=== PATIENT | male | born 1995 | race Caucasian/White ===

== ENCOUNTER 2022-04-17 16:23 | Emergency (ER) | payer OTHER, SELFPAY ==
--- NOTE | 2022-04-17 16:30 | DI.RAD_ITS ---
Exam(s) XR KNEE RT 3V AP,LAT,OFELIA EXAM: XR KNEE RT 3V AP,LAT,OFELIA CLINICAL HISTORY: ski accident. TECHNIQUE: 2D digital imaging was performed. Three views. COMPARISON: No exams were available for comparison FINDINGS: BONES: Large fracture fragment from tibial plateau displaced posteriorly. no bony destructive lesion is seen. JOINTS: The knee is normally aligned. A joint effusion is seen. SOFT TISSUE: Normal. IMPRESSION: Tibial plateau fracture. DATA REPOSITORY: RADIATION DOSE DELIVERED:
[2022-04-17 16:35] VITALS: BP 137/93; PULSE 120; RESP 18; TEMP 36.6; O2SAT 98
[2022-04-17 16:42] VITALS: BP 137/93; PULSE 125; RESP 26; O2SAT 98
--- NOTE | 2022-04-17 16:48 | ED.GENADUL_ITS ---
Discharge Plan Disposition Patient Disposition: Home Discharge Details Clinical Impression: Closed fracture of tibial plateau Primary Care Provider: None,None ED Provider: Ciro Stokes Home Meds and New Rx's Prescriptions: New oxycodone-acetaminophen [Percocet] 5-325 mg tablet 1 tab PO Q8H PRNQty: 8 0RF Continued propranolol 10 mg Tablet 10 mg PO DAILY lisinopril 10 mg Tablet 10 mg PO DAILY Discharge Instructions Instructions: Leg Fracture (ED) Additional Instructions: Oxycodone as directed, this medication may cause drowsiness and constipation, you may want to take an ocry-lcv-hszlqzk stool softener while taking this medication. Npvx-dzc-slqayon ibuprofen as directed. Wear knee immobilizer and use crutches, no weightbearing. Rest, elevate, cool compresses every 2 hours for 20 minutes. Please watch for new or worsening symptoms and return to the ER for any concerns. I personally spoke with our orthopedic team, Dr. Olsen, have placed you on the orthopedic list to help expedite outpatient follow-up care. Please contact the office of Dr. Olsen on Tuesday after the holiday on Tuesday. Referrals: Matias Olsen MD [ [facility] STAFF PHYSICIAN] - Medical Decision Making This is a 27-year-old gentleman who reports 1 hour ago was skiing, wearing a helmet, went over a small hill of snow, and upon coming down his right foot planted and he twisted his right knee. He denies striking his head, LOC, neck pain, chest pain, any other distracting injuries. Has not taken any medication for his pain. Reports his pain is moderate but worse with movement or bearing weight. Denies previous knee injury. Plan to provide p.o. ibuprofen and Percocet. Will obtain x-ray. X-ray reveals a tibial plateau fracture. Heart rate now 108, patient reports improvement of his pain. Case discussed with Dr. Olsen, orthopedics. Will obtain CT imaging of his right knee without contrast. Once he returns from CT we will place into a long- leg immobilizer and crutches, no weightbearing. Patient will not wait for the CT results as it would not change his disposition here in the ER and he will be placed on the orthopedic list to help expedite outpatient Ortho follow-up. Standard discharge and return precautions were provided. Patient understands, is agreeable to this plan, and has no additional questions or concerns upon discharge. This documentation was generated using [employer] dictation system, please disregard any oddities of phrase or misspellings. Imaging Data Radiologic Study: Attestation: I personally reviewed and interpreted this imaging study as follows: Imaging: X-Ray Radiologist's impression: PROCEDURE INFORMATION: Exam: XR Right Knee Exam date and time: 04/17/2022 4:54 PM Age: 27 years old Clinical indication: Injury or trauma; Skiing accident; Fracture, traumatic; Closed fracture; Patella or knee; Right TECHNIQUE: Imaging protocol: Radiologic exam of the Right knee. Views: 4 or more views. COMPARISON: No relevant prior studies available. FINDINGS: Bones/joints: There is a large fracture of the tibial plateau involving the tibial spine and extending posteriorly. A large fracture fragment is seen in the joint space. There is no joint dislocation. A small joint effusion is noted. Soft tissues: Subcutaneous edema noted in the infrapatellar region. IMPRESSION: Tibial plateau fracture predominantly involving the tibial spine with a large fracture fragment extending into the joint space, predominantly medially. A CT scan of the knee is recommended for further evaluation. HPI General Mode of arrival: wheelchair . Date/Time Provider Initiated Documentation: 04/17/22 16:37 . Limitations to Documentation: no limitations . Information obtained by: patient and family . History of Present Illness 27 year old M presents to the emergency department with the chief complaint of R knee injury, described as moderate, with intensity rated at 6. Quality is described as aching, and is localized to the right and lower extremity. Patient reports no radiation. Patient started experiencing this hour(s) (1) and it has been constant. Immobilization improves symptom(s), Movement worsens symptoms . Patient notes no other symptoms.. Patient did receive the following treatments prior to arrival, none Related Data Home Medications Medication Instructions Recorded Confirmed lisinopril 10 mg tablet 10 mg PO DAILY 04/17/22 04/17/22 oxycodone-acetaminophen 5 mg-325 1 tab PO Q8H PRN #8 tabs 04/17/22 mg tablet (Percocet) propranolol 10 mg tablet 10 mg PO DAILY 04/17/22 04/17/22 Previous Rx's Medication Instructions Recorded oxycodone-acetaminophen 5 mg-325 1 tab PO Q8H PRN #8 tabs 04/17/22 mg tablet (Percocet) Allergies Allergy/AdvReac Type Severity Reaction Status Date / Time No Known Allergies Allergy Unverified 04/17/22 16:43 General Stated Complaint: Orthopedic ANGELINE: 3 Review of Systems Constitutional Constitutional: Denies headache(s) ENT Ears, Nose, Mouth, and Throat: Denies headache(s) and Denies neck pain Cardiovascular Cardiovascular: Denies chest pain and Denies dyspnea Respiratory Respiratory: Denies dyspnea Gastrointestinal Gastrointestinal: Denies abdominal pain and Denies nausea Musculoskeletal Musculoskeletal: Denies back pain, Denies neck pain, Denies numbness and Denies tingling Integumentary/Breasts Skin/Breast: Denies rash Neurologic Neurologic: Denies headache(s), Denies numbness and Denies tingling PFSH All Active Problems (Updated 04/17/22 @ 17:44 by YONY Crawford) Closed fracture of tibial plateau (Acute) Social History Smoking/Tobacco Use Status: Never Smoking risk assessment performed?: Yes Alcohol Intake: current Alcohol Intake frequency: a few times a week Drug use: Rarely Substance use type: marijuana Do you feel safe at home: Yes Do you feel safe in your relationship?: Yes Exam Const General: cooperative, healthy appearing, comfortable and no acute distress Orientation: alert and awake [facility] Head: normal to inspection, normocephalic and atraumatic Face and sinus: normal facial exam Mouth: moist mucous membranes Eyes General: appearance normal, both eyes and all related structures Conjunctivae: conjunctivae normal Neck Neck: normal visual inspection, full ROM, no meningeal signs, trachea midline and supple Resp Effort & Inspection: normal respiratory effort and able to speak in complete sentences Cardio Rate: tachycardic Rhythm: regular rhythm Back/Spine/Pelvis Back: No back tenderness Skin General skin exam: no rashes or lesions noted Neuro General: patient alert, patient awake, moves all extremities and no focal motor deficits Cognition: normal cognition Speech: speech normal Gait: antalgic Motor: muscle tone normal throughout Sensory Exam: no sensory deficits noted Extrem General: full ROM and capillary refill normal Other: Right knee with diffuse anterior and medial discomfort and mild swelling. Near full extension and flexion. Knee examination is difficult secondary to guarding. There appears to be increased discomfort with both varus and valgus stress. Anterior draw sign appears positive for both pain and laxity. Hip and calf unremarkable. Neuro, vascular, tendon intact. Normal capillary refill and pedal pulse. Psych Appearance: grossly normal Mental Status: mental status grossly normal Course Vital Signs Vital signs: Vital Signs Temperature 36.6 C 04/17/22 16:35 Pulse 120 H 04/17/22 16:35 Respiratory Rate 18 04/17/22 16:35 Blood Pressure 137/93 H 04/17/22 16:35 Pulse Oximetry 98 04/17/22 16:35 Temperature 36.6 C 04/17/22 16:35 Pulse 125 H 04/17/22 16:42 Respiratory Rate 26 H 04/17/22 16:42 Respiratory Effort Normal, Non-Labored 04/17/22 16:41 Blood Pressure 137/93 H 04/17/22 16:42 Pulse Oximetry 98 04/17/22 16:42 Oxygen Delivery Method Room Air 04/17/22 16:42 Oxygen Flow Rate 0 04/17/22 16:42 Pain Level 2 04/17/22 16:35 PAWSS Have you Been Recently Intoxicated or Drunk Within the Last 30 days?: No Have you Ever Experienced Previous Episodes of Alcohol Withdrawal?: No Have you ever Experienced Withdrawal Seizures?: No Have you ever Experienced Delirium Tremens(DT)s?: No Have you ever undergone Alcohol Rehabilitation Treatment (i.e, inpt ot o utpatient treatment programs)?: No Have you ever Experienced Blackouts?: No Have you ever Combined Alcohol with other Downers within the last 90 days?: No Have you ever Combined Alcohol with any other Substance of Abuse during the last 90 days?: No Positive Blood Alcohol level on Presentation? [PCS.BAL]: No Evidence of Increased Autonomic Activity (i.e. HR>120, tremor, sweating, agitation, nausea)?: No Result: 0
--- NOTE | 2022-04-17 17:15 | DI.CT_ITS ---
Exam(s) CT LOWER EXTREMITY RT WO EXAM: CT LOWER EXTREMITY RT WO CLINICAL HISTORY: knee, fx on x ray. TECHNIQUE: Imaging Protocol: Axial computed tomography images with coronal and sagittal reformatted images were created and reviewed. CONTRAST MATERIAL: Noncontrast COMPARISON: CR,XR XR KNEE RT 3V AP,LAT,OFELIA from 04/17/2022 FINDINGS: Bones: Fracture extending obliquely in the horizontal plane through the posterior aspects of both med ial and lateral tibial plateaus. Posterior displacement of the main fracture fragment by few millimeters as well as a approximate 5 mi llimeters of maximal separation. Mild comminution at the tibial spine.. No lytic or sclerotic lesio ns are identified. Soft Tissues: Anterior edema. Joint effusion present. IMPRESSION: Mildly comminuted fracture through the posterior aspects of both medial and lateral tibial plateaus. RADIATION DOSE DELIVERED: 303.7mGy.cm Total DLP DATA REPOSITORY: All CT scans at this facility are submitted to the National Radiology Data Registry (NRDR) Dose Index Registry (DIR) with the [employer] ([employer]). RADIATION OPTIMIZATION: All CT scans at this facility use at least one of these dose optimization te chniques: automated exposure control; mA and/or kV adjustment per patient size (includes targeted exa ms where dose is matched to clinical indication); or iterative reconstruction.
--- NOTE | 2022-04-17 17:16 | DI.VRAD_ITS ---
PROCEDURE INFORMATION: Exam: XR Right Knee Exam date and time: 04/17/2022 4:54 PM Age: 27 years old Clinical indication: Injury or trauma; Skiing accident; Fracture, traumatic; Closed fracture; Patella or knee; Right TECHNIQUE: Imaging protocol: Radiologic exam of the Right knee. Views: 4 or more views. COMPARISON: No relevant prior studies available. FINDINGS: Bones/joints: There is a large fracture of the tibial plateau involving the tibial spine and extending posteriorly. A large fracture fragment is seen in the joint space. There is no joint dislocation. A small joint effusion is noted. Soft tissues: Subcutaneous edema noted in the infrapatellar region. IMPRESSION: Tibial plateau fracture predominantly involving the tibial spine with a large fracture fragment extending into the joint space, predominantly medially. A CT scan of the knee is recommended for further evaluation. Dictated and Authenticated by: La Nena High MD. Ordering:EMILIA Tanner MD
[2022-04-17] MEDS: oxyCODONE 5 mg/Acetaminophen 325 mg TAB 1 TAB PO (17:32)
[2022-04-17] MEDS: Ibuprofen 800 MG TAB PO (17:32)
[2022-04-17 18:11] VITALS: BP 132/88; PULSE 116; O2SAT 98
--- NOTE | 2022-04-17 18:27 | DI.VRAD_ITS ---
PROCEDURE INFORMATION: Exam: CT Right Lower Extremity Without Contrast, Knee Exam date and time: 04/17/2022 5:47 PM Age: 27 years old Clinical indication: Tibial plateau FX seen on x-ray TECHNIQUE: Imaging protocol: CT of the Right lower extremity without contrast was performed. Exam focused on the knee. COMPARISON: CR XR KNEE RT 4V+ 04/17/2022 4:54 PM FINDINGS: Bones/joints: There is redemonstration of a complete posterior tibial plateau fracture predominantly involving the tibial spine. The fracture line extends into the medial posterior tibial plateau with mild posterior displacement of the dominant fracture fragment. There is a slightly comminuted appearance of the tibial spine. Of note, the fracture fragment is attached to the posterior cruciate ligament, suggestive of avulsion injury. The patellar tendon and quadriceps tendon appear grossly intact. The partially evaluated anterior cruciate and posterior cruciate ligaments appear at least partially intact. A small amount of joint fluid is noted, likely mild hematoma. There is no joint dislocation. Soft tissues: Subcutaneous edema and hematoma seen predominantly at the medial and anterior aspect of the knee joint. IMPRESSION: 1. Posterior tibial plateau fracture involving the tibial spine as described. The dominant fracture fragment remains attached to the posterior cruciate ligament, suggestive of avulsion. 2. No evidence of joint dislocation. 3. Partially evaluated ligaments and tendons appear grossly intact. However, if there is physical examination concern for tear, an MRI is recommended for further evaluation. Dictated and Authenticated by: La Nena High MD. Ordering:EMILIA Tanner MD
== END 2022-04-17 18:23 | disposition home or self-care (01) ==
PROVIDERS: Emergency Provider Physician Assistant
DX: S82.141A Displaced bicondylar fracture of right tibia, initial encounter for closed fracture (principal); X50.1XXA Overexertion from prolonged static or awkward postures, initial encounter; Y93.23 Activity, snow (alpine) (downhill) skiing, snowboarding, sledding, tobogganing and snow tubing; Y92.828 Other wilderness area as the place of occurrence of the external cause
CPT/HCPCS: 73562; 99284; 73700

== ENCOUNTER 2022-04-21 01:04 | Outpatient (CLI) | payer OTHER, SELFPAY ==
--- NOTE | 2022-04-21 07:30 | DI.MRI_ITS ---
Exam(s) MR LOWER JOINT RT WO EXAM: MR LOWER JOINT RT WO CLINICAL HISTORY: Multilig injury,MCL TEAR,SPRAIN RT KNEE, S83.411A. TECHNIQUE: Multiplanar multisequence MRI was performed. COMPARISON: CR,XR XR KNEE RT 3V AP,LAT,OFELIA from 04/17/[address] LOWER EXTREMITY RT WO from 04/17/2022 FINDINGS: BONES: There is again seen a fracture involving the posterior aspect of both the medial and lateral t ibial plateaus. The bony fragment includes the insertion site of the posterior cruciate ligament. T here is marrow edema in the fracture fragment and the parent proximal tibia. There is also edema see n in the posterior aspect of the lateral femoral condyle. JOINTS: Articular cartilage is unremarkable. There is a joint effusion present. There is a short alma ear object in the anterior joint space which may represent a displaced fracture fragment. TENDONS: Extensor mechanism: Unremarkable. Medial retinaculum: Unremarkable. Lateral retinaculum: Unremarkable. Popliteus: Unremarkable. MUSCLES: Unremarkable. MENISCI: The medial meniscus is unremarkable. The lateral meniscus is unremarkable. SOFT TISSUES: There is marked edema seen in the soft tissues around the knee. There is a very tiny p opliteal cyst. LIGAMENTS: Anterior Cruciate: Unremarkable. Posterior Cruciate: The posterior cruciate ligament is intact and attached to the posterior bony frag ment. Medial Collateral:There is a torn medial collateral ligament distally with fluid between the medial m eniscus and the MCL suggesting meniscocapsular separation. Lateral Collateral: There is thickening of the proximal aspect of the proximal lateral collateral lig ament suspicious for partial tear. OTHER: IMPRESSION: 1. Displaced fracture involving the posterior aspect of the medial and lateral tibial plateau. 2. Tear of the medial collateral ligament distally with findings suggestive of meniscocapsular separa tion. 3. Partial tear of the proximal lateral collateral ligament. 4. Joint effusion 5. Marked edema in the soft tissues around the knee. DATA REPOSITORY:
== END 2022-04-21 01:24 ==
PROVIDERS: Visit Provider Student in an Organized Health Care Education/Training Program
DX: M25.561 Pain in right knee (principal); S83.411A Sprain of medial collateral ligament of right knee, initial encounter; M25.461 Effusion, right knee; S82.141A Displaced bicondylar fracture of right tibia, initial encounter for closed fracture; X58.XXXA Exposure to other specified factors, initial encounter; S83.421A Sprain of lateral collateral ligament of right knee, initial encounter; R60.0 Localized edema
CPT/HCPCS: 73721

== ENCOUNTER 2022-04-22 20:57 | Observation (INO) | payer OTHER, SELFPAY ==
[2022-04-22] VITALS (14 sets, daily range): BP systolic 127–164; BP diastolic 73–108; PULSE 79–98; RESP 18–31; TEMP 36.3–37.5; O2SAT 94–98; BMI 38.0
--- NOTE | 2022-04-22 06:15 | ANES.PREOP_ITS ---
General Info Date of Service Date Performed: 04/22/22 Height: 5 ft 8 in Weight: 113.398 kg Body Mass Index (BMI): 38.0 Surgical Procedure: Operation Date: 04/22/22 10:55 Proposed Procedure Side Surgeon p Knee Arthroscopy w/ Posterior Cruciate Ligament Avulsion Fracture Repair and Medial Meniscus Avulsion Fracture Repair, any other indicated procedures Right J dick Curiel MD Meds Allergies and Home Medications Allergies Allergy/AdvReac Type Severity Reaction Status Date / Time No Known Allergies Allergy Unverified 04/21/22 14:39 Home Medication Medication Instructions Recorded propranolol 10 mg tablet 60 mg PO DAILY 04/17/22 lisinopril 10 1 tab PO DAILY 04/21/22 mg-hydrochlorothiazide 12.5 mg tablet sertraline 50 mg tablet 50 mg PO DAILY 04/21/22 aspirin 81 mg tablet,delayed 81 mg PO DAILY Prevent blood clot 04/22/22 release 30 days #30 tabs naproxen 250 mg tablet 250 - 500 mg PO BID PRN #40 tabs 04/22/22 oxycodone 5 mg tablet 5 - 10 mg PO Q4H PRN moderate to 04/22/22 severe pain #18 tabs Current Visit Medications: Current Medications Generic Name Dose Route Start Last Admin Trade Name Freq PRN Reason Stop Dose Admin Ringer's Solution 1,000 mls @ 80 mls/hr 04/22/22 06:00 IV 05/21/22 23:59 INFUSION LASHELL Cefazolin Sodium/Dextrose 2 gm in 50 mls @ 100 mls/hr 04/22/22 06:00 Ancef Duplex IVPB 05/21/22 23:59 PREOP LASHELL IV Miscellaneous Supplies 1 each 04/22/22 06:00 Iv Access IV 05/21/22 23:59 DIRECTED LASHELL Sodium Chloride 0 ml 04/22/22 06:00 Normal Saline Flush 10 Ml Syr IV 05/21/22 23:59 PRN PRN Sodium Chloride 0 ml 04/22/22 06:00 Normal Saline 10 Ml Vial IJ 05/21/22 23:59 DIRECTED PRN Sterile Water 0 ml 04/22/22 06:00 Water,Injection,Sterile 10 Ml Vial IJ 05/21/22 23:59 DIRECTED PRN PFSH Active Problems Active Problems: Problem Status Onset Code Traumatic rupture of posterior cruciate ligament of right knee 04/17/22 S83.521A Fracture of right tibial plateau 04/17/22 S82.141A MCL sprain of right knee S83.411A Medical History Medical History Anxiety Depression HTN (hypertension) Tobacco Smoking/Tobacco Use Status: Never Alcohol Alcohol Intake: current Alcohol intake frequency: a few times a week Substance Use Substance use: Rarely Substance use type: marijuana Vital Signs and Lab Results Vital Signs Most Recent Vital Signs in EMR: Temp Pulse Resp BP Pulse Ox 36.3 C L 84 18 127/78 98 04/22/22 10:06 04/22/22 10:06 04/22/22 10:06 04/22/22 10:06 04/22/22 10:06 Lab Results Blood Type / Crossmatch: No Data to Display Complete Blood Count: No Data to Display Complete Metabolic Panel: No Data to Display Liver Function Panel: No Data to Display Coagulation Panel: No Data to Display Cardiac Panel: No Data to Display Arterial Blood Gas: No Data to Display Venous Blood Gas: No Data to Display Pancreas Panel: No Data to Display Thyroid Panel: No Data to Display Infectious Disease: No Data to Display Blood Cultures: No Data to Display Toxicology Panel: No Data to Display Anesthesia Assessment and Plan Anesthesia History Personal History: No History of Anesthesia Complications Family History: No Family History of Anesthesia Complications Exercise Tolerance Exercise Tolerance: Metabolic Equivalents>4 Pertinent Negatives Pertinent Negatives: No Symptoms of GERD Cardiac & Pulmonary Exam Cardiac Exam: Normal S1/S2 Heart Sounds Pulmonary Exam: Clear Bilateral Breath Sounds Implantable Cardiac Device Does patient have a Pacemaker or an ICD?: No Airway Exam Known Difficult Airway: No Mallampati Class: 2 Mouth Opening: Normal (> 3cm) Thyromental Distance: Greater than 3 cm Neck Range of Motion: Full ROM Neck Circumference: Normal Teeth Condition: Normal Dentition ASA Classification ASA Score: ASA 2 Emergency Case?: No NPO Status NPO Status: NPO Clears >2 hours, Solids >8 hours Anesthesia Plan Resuscitation Status: Full Code Anesthesia Technique: General Anesthesia Airway Planned: Endotracheal Tube Monitors Used: Standard Monitors Preoperative Comments:: 27 yo male for knee scope. Sig PMHx: anxiety/depression, HTN (lisinopril, HCTZ, propranolol), occ EtOH/cannabis
--- NOTE | 2022-04-22 07:23 | W.PM.DSUDISC ---
Date of service: 04/22/22 Time of Service: 17:00 Discharge Plan Disposition Patient Disposition: Home Discharge Details Attending Provider: Babar Curiel Primary Care Provider: Katty,Local Home Meds and New Rx's Prescriptions: New aspirin 81 mg tablet,delayed release (DR/EC) 81 mg PO DAILY 30 Days Qty: 30 0RF naproxen 250 mg tablet 250 - 500 mg PO BID PRNQty: 40 0RF Rx Instructions: take with a meal oxycodone 5 mg tablet 5 - 10 mg PO Q4H MDD 30 mg PRN (Reason: moderate to severe pain) Qty: 18 0RF Continued propranolol 10 mg Tablet 60 mg PO DAILY lisinopril-hydrochlorothiazide 10-12.5 mg tablet 1 tab PO DAILY Patient Comments: TAKE ONE TABLET BY MOUTH EVERY DAY sertraline 50 mg tablet 50 mg PO DAILY Patient Comments: TAKE ONE TABLET BY MOUTH EVERY DAY Discontinued oxycodone-acetaminophen [Percocet] 5-325 mg tablet 1 tab PO Q8H PRNQty: 8 0RF Discharge Instructions Additional Instructions: Surgery: Right knee arthroscopy with PCL avulsion fracture repair, partial lateral meniscectomy, and MCL repair. Activity: Crutches and protected weightbearing with knee in full extension for 6 weeks. Hinged knee brace should be on and locked in extension whenever ambulatory. Seated range of motion 0-90 degrees starting week 3. Deeper flexion OK after week 6. Need to avoid posterior tibial translation: No active knee flexion (avoid hamstring activation) and prone knee extension for 8 weeks. A physical therapy prescription will be sent electronically to start in 2 to 3 weeks. Prescriptions: Aspirin 81 mg take 1 daily to prevent a blood clot for 30 days Naproxen 250 mg take 1-2 every 12 hours with a meal as needed for moderate pain Oxycodone 5 mg take 1-2 every 4-6 hours as needed for severe pain You may use [id number]-[id number] Tylenol (acetaminophen) as needed for mild pain. These pain medications may be taken all at once or in different combinations as needed. Also, recommend Colace (docusate) as a stool softener as surgery and pain medicine cause constipation. You may try zvwa-mcd-hclfinf diphenhydramine (Benadryl) 25-50 mg nightly as a sleep aid Dressings: Leave dressing in place for 5 days. May then remove and leave open to air or cover incisions with Band-Aids. Leave the sticky Steri-Strips in place until they fall off or remove them after you shower. May shower after 7 days. Follow-up: 10-[address] Curiel You may take off the leg compression stockings this evening at home. You may also leave them on a few days longer if you have a history of leg swelling or edema. Let us know right away if you develop any redness, drainage, fevers, chest pain, or trouble breathing. Do not drink alcohol or drive for at least 24 hours after anesthesia. Please call the office during business hours with any questions or concerns. Discharge Orders Discharge Orders: Discharge Order (Routine); Ordered 04/22/22 Ordered By: Babar Curiel DS: Diagnosis Discharge Diagnosis (1) Traumatic rupture of posterior cruciate ligament of right knee: Status: Acute (2) Fracture of right tibial plateau: Status: Acute (3) MCL sprain of right knee: Status: Acute
--- NOTE | 2022-04-22 07:23 | W.PM.OP ---
Date of service: 04/22/22 Time of Service: 13:00 Operative Note Operative Note DATE OF PROCEDURE: 04/22/22 PRE-OP DIAGNOSIS: Right knee 1. Complete displaced PCL avulsion fracture 2. Posterior medial tibial plateau fracture 3. Complete mid substance MCL tear POST-OP DIAGNOSIS: same 4. Small posterior horn and root lateral meniscus tears PROCEDURE: Right knee 1. Arthroscopic PCL avulsion fracture repair, CPT #78721 2. Partial lateral meniscectomy, CPT #82709 3. Open midsubstance MCL repair, CPT #50105 SURGEON: Babar Curiel MANAGER [employer] BUSINESS: Catia Obregon ANESTHESIA TYPE: Local By Surgeon, General LMA/ETT and Primary Nerve Block Refer to Anesthesia Record ESTIMATED BLOOD LOSS: 15 PATHOLOGY: none sent TOURNIQUET TIME: 0 Patient was transported to: PACU Patient's condition: stable Indications: Please see complete medical record for details. Findings: Exam under anesthesia: Obvious posterior sag, positive posterior drawer. High?grade valgus complete MCL instability in flexion and extension. Anterior drawer stable. Arthroscopic findings: Complete bony avulsion fracture PCL avulsion posterior and central tibia. Mild posterior horn and root lateral meniscus tearing. Intact medial meniscus to tibia with meniscocapsular separation proximally. Complete MCL midsubstance disruption a couple centimeters distal to the joint line. Intact ACL. Intact articular cartilage. Procedure Description: In the operating room, general anesthesia was induced. The patient was positioned supine on the operating room table. All bony prominences were well-padded. Preoperative antibiotics were administered. The knee was prepped and draped in the usual sterile fashion. The correct patient, procedure, and side of the procedure were all verified prior to incision. Exam under anesthesia was performed. 30 cc of 0.25% bupivacaine containing epinephrine was infiltrated about the planned anteromedial and anterolateral knee arthroscopy portals as well as the pretibial and medial knee incisions. The portals were established and a complete diagnostic arthroscopy was performed with relevant findings detailed above. The arthroscope was carefully directed from the anterior lateral portal between the PCL and medial femoral condyle into the posterior medial compartment. A posterior medial portal was then established using spinal needle localization, dilation, and rigid 7 mm cannula inserted. The PCL avulsion fragment was inspected. Visualization was challenging as expected given intact ACL, intact PCL, and fracture hemorrhage and synovitis. Blunt instruments were carefully used posteriorly alternating viewing from anterior and posterior medial to mobilize through the notch and reduced the fragment as well as create space for the drill guide and repair. The shaver was very cautiously use posteriorly with minimal suction. The intact PCL fibers were intimately connected to the septum occluding complete posterior visualization. The oval tibial drill guide was carefully passed through the medial portal between the medial femoral condyle and PCL and directed using arthroscopic visualization and fluoroscopic assistance over the PCL avulsion fragment and PCL footprint. A small pretibial incision was made and the 2.4 mm drill insert connected down to bone. As best possible the angle was adjusted to target the posterior aspect of the fracture while still allowing arthroscopic visualization and protection of the drilling and button. The 1.24 mm guidewire was then drilled again carefully targeting the appropriate position and advancing slowly. The avulsion fragment was held in a reduced position using the drill guide and the small wire just barely passed through the far cortex and fracture. Additional blunt and shaver debridement had to be done to visualize the tip of the wire. The cannulated 3.7 mm drill was then carefully used over the wire again maintaining the fragment reduced taking care to ensure no advancement of the guidewire into the posterior knee until the entire length and through the fracture had been drilled. The tight rope XP was then inserted through the anteromedial tibial and passed to the fracture site. Arthroscopic viewing and fluoroscopic assistance was used to ensure the button passed through the fragment and was then carefully flipped on PCL tissue avoiding incarcerated any posterior capsule. Provisional tension on the button showed excellent reduction of the avulsion fracture. The tensioning mechanism was then advanced bringing the pretibial button down to cortex and provisional tensioning done. Fluoroscopic and arthroscopic views confirmed appropriate button placement and fracture reduction. The knee was ranged from 0 to 90 degrees numerous times. A moderate anterior drawer was then applied with the knee in 90 years of flexion and tight rope device was final tightened, backup knots tied, and sutures cut. Posterior drawer testing was now stable. There is no displacement of the avulsion fragment. Arthroscopy was then done to confirm reduction of the posterior lateral extension of the fracture fragment, which was well reduced. There was mild fraying of the posterior horn lateral meniscus and moderate fraying at the root with otherwise stable root and intact lateral meniscus. The mechanical shaver was used to debride the lateral meniscus fraying tearing to a stable margin. Arthroscope was then used to evaluate the fracture in the intercondylar area with good reduction. There a few small pieces of comminution about the medial tibial spine anterior to the majority the fracture fragment that was removed resected with the mechanical shaver. The probe was used to confirm intact and stable posterior horn medial meniscus, which was remarkably on injured, and the posterior medial tibial plateau fracture was probed and essentially nondisplaced and had been completely reduced and stably fixated with the PCL tight rope device. At the central medial joint line the probe was used to confirm deep MCL attachment distally to the tibia throughout. There was separation of the proximal deep MCL with positive drive-through from the femur. Spinal needle was used to localize the central aspect of the superficial MCL just proximal to the meniscus. The knee was copiously irrigated and then drained of arthroscopic fluid. A medial longitudinal approach was then done extending from a couple centimeters proximal to the joint line to about 4 cm distal. Fascia was split longitudinally. The proximal stump of the superficial MCL was readily exposed. The more posterior pes and hamstrings were intact. Distally, the MCL was more shredded and did not really have excursion or tissue quality for repair. Fortunately, the proximal MCL could be reduced over the proximal medial tibia with about 2 cm of viable tissue. The proximal MCL was then whipstitched in a locking fashion using 2 suture tapes taking care to incorporate the more proximal sturdy tissue and exiting the tendon and at the appropriate level of the tissue corresponding to about 2 cm distal to the joint line. A central point was marked and confirmed with the motion and traction on the sutured MCL. With the knee in about 30 degrees of flexion and slight varus, the repair was done to a 4.75 mm SwiveLock anchor with excellent tissue reduction, hold, and reapposition across the previously exposed medial joint. Valgus exam was dramatically improved with stable tissue repair in both flexion and extension. The wound was copiously irrigated normal saline. There was no additional distal tissue to incorporate into the repair. The somewhat dykes incised fascia was then repaired and incorporated with some of the more posterior oblique tissue avoiding the pes tendons with a strong running suture tape repair. Superficial layers were irrigated. Subcutaneous tissue closed using 2-0 Monocryl buried interrupted. Skin closed using 3-0 Monocryl running subcuticular. The arthroscopy portals and pretibial incision were then closed using 3 oh buried Monocryl. Mastisol, Steri-Strips, and 4 x 4 gauze were applied over the portals and incisions followed by sterile soft roll. The knee was then wrapped gently with an TONIE comressive bandage. A hinged knee brace was reapplied locked in full extension. Dorsalis pedis pulse was palpable in the foot had brisk cap refill. The patient awoke from anesthesia without complication and was transferred to the recovery room in a stable condition.
[2022-04-22] MEDS: Lactated Ringers 1,000 ML 80 ML IV ×2 (10:35→16:38)
--- NOTE | 2022-04-22 12:00 | DI.RAD_ITS ---
Exam(s) XR KNEE RT 3V AP,LAT,OFELIA EXAM: XR KNEE RT 3V AP,LAT,OFELIA CLINICAL HISTORY: meniscus avulsion fracture TECHNIQUE: 2D and realtime digital imaging was performed. CONTRAST MATERIAL: Refer to procedure report. COMPARISON: CR,XR XR KNEE RT 3V AP,LAT,OFELIA from 04/17/2022 FINDINGS: Fluoroscopy was provided for Dr. Curiel during the performance of a reduction and internal fixation of tibial plateau fracture. Please refer to the procedure report for complete details. Ka,r=2.9 mGy IMPRESSION: RADIATION DOSE DELIVERED:
[2022-04-22] MEDS: ceFAZolin 2 GM/50 ML BAG IVPB (12:36)
[2022-04-22] MEDS: Bupivacaine 0.25% Pres-Free W/EPI 30 ML VIAL (13:28)
[2022-04-22] MEDS: EPINEPHrine 30 MG/30 ML VIAL (15:40)
[2022-04-22] MEDS: fentaNYL 100 MCG/2 ML VIAL IVP (17:25)
--- NOTE | 2022-04-22 18:06 | W.ANESPOSTOP ---
Postoperative Evaluation Date, Time and Location Date Performed: 04/22/22 Time Performed: 18:00 Patient Location: PACU Vital Signs Most Recent Imported Vital Signs: Most Recent Vital Signs Temp Pulse Resp BP Pulse Ox 36.3 C L 94 H 28 H 134/90 96 04/22/22 17:40 04/22/22 17:40 04/22/22 17:40 04/22/22 17:40 04/22/22 17:40 Pain Score Most Recent Pain Score: Most Recent Pain Score Pain Level 7 04/22/22 17:40 Assessment Mental Status: Arousable with meaningful communication Airway and Respiratory Function: Patent airway with normal (patient baseline) respiratory exam Cardiovascular Function: Hemodynamically Stable Hydration Status: Adequately Hydrated Nausea & Vomiting: No Nausea or Vomiting Pain: Pain is Moderate or Severe Postoperative Pain Management: Pain being addressed with medication (Dr. Veena reyes who is writing for additional medications. Plan made with pt. is to have him wake up more before giving additional pain medicine.) Peripheral Nerve Block: Patient did not receive a nerve block
[2022-04-22] MEDS: oxyCODONE 5 MG TAB PO ×2 (18:26→19:58)
[2022-04-22] MEDS: Naproxen 500 MG TAB PO (18:28)
[2022-04-22] MEDS: oxyCODONE-CR 10 MG TABCR PO (20:42)
[2022-04-23] MEDS: Lactated Ringers 1,000 ML 80 ML IV (00:26)
[2022-04-23 03:54] VITALS: BP 126/76; PULSE 74; RESP 20; TEMP 36.6; O2SAT 99
[2022-04-23 07:29] VITALS: BP 132/79; PULSE 87; RESP 16; TEMP 36.7; O2SAT 99
[2022-04-23] MEDS: oxyCODONE-CR 10 MG TABCR PO (08:28)
[2022-04-23] MEDS: Aspirin E.C. 81 MG TABEC PO (08:29)
--- NOTE | 2022-04-23 10:42 | W.PM.PROGNOT ---
Date of Service Date of service: 04/23/22 Time of Service: 10:42 Assessment and Plan Assessment and plan (1) Traumatic rupture of posterior cruciate ligament of right knee: Status: Acute Assessment and plan: Plan for discharge home today. See discharge instructions. All questions were answered and patient is in agreement with the plan. (2) Fracture of right tibial plateau: Status: Acute (3) MCL sprain of right knee: Status: Acute Subjective Subjective Interval history since last seen: 27 year old male post-op day #1 status post right knee arthroscopy with PCL avulsion fracture repair, partial lateral meniscectomy, and MCL repair on 04/22/22. Patient reports that overall he is doing very well. He reports intermittent muscle spasm over the medial aspect of his knee which causes some discomfort. Exam Extrem Other: Patient resting comfortably in bed with hinged knee brace on the right. Exam of the right lower extremity patient demonstrates full ankle motion and wiggles toes. Sensation intact to light touch. 3+ dorsalis pedis pulse. Objective Last Vital Signs Temp 98.1 F 04/23/22 07:29 Pulse 87 04/23/22 07:29 Resp 16 04/23/22 07:29 BP 132/79 04/23/22 07:29 Pulse Ox 99 04/23/22 07:29 Time Spent with Patient Time Spent with Patient: <25 minutes Time was spent: preparing to see the patient(eg.review tests), ordering medications,tests, procedures and counseling the patient
[2022-04-23 11:32] VITALS: BP 132/78; PULSE 93; RESP 16; TEMP 36.8; O2SAT 96
[2022-04-23] MEDS: oxyCODONE 5 MG TAB PO (12:31)
--- NOTE | 2022-04-23 13:13 | PT.INIE ---
PT Notes Visit Reasons: Right multi-ligament knee injury Inpatient Physical Therapy Evaluation Date: 04/23/22 Referring Doctor: Dr. Babar Curiel PT Orders: PT CONSULT: Eval and treat Precautions: Hinged leg immobilizer locked at 0 degree for any/all ambulation. No seated knee flexion until 3 weeks post-op Patient Profile/Admitting Diagnosis: Patient is a 27-year-old male referred for evaluation and treatment planning status post arthroscopic PCL avulsion fracture repair, partial lateral meniscectomy and open mid substance MCL repair on the right lower extremity performed by Dr. Curiel on 22 April 2022. Patient injured his knee while skiing at [employer]. He states that he has been ambulating with bilateral axillary crutches for the last week in preparation for surgery. He is slated to be discharged later today. Did have his lunch and has had to narcotic-based pain medication within the last half hour. PMHX: Home Medications ?Medication ?Instructions ?Recorded ?Confirmed lisinopril 10 mg tablet 10 mg PO DAILY 04/17/22 04/17/22 oxycodone-acetaminophen 5 mg-325 1 tab PO Q8H PRN #8 tabs 04/17/22 ? mg tablet (Percocet) ? ? ? propranolol 10 mg tablet 10 mg PO DAILY 04/17/22 04/17/22 Previous Rx's ?Medication ?Instructions ?Recorded oxycodone-acetaminophen 5 mg-325 1 tab PO Q8H PRN #8 tabs 04/17/22 mg tablet (Percocet) ? ? ? Allergies Allergy/AdvReac Type Severity Reaction Status Date / Time No Known Allergies Allergy ? ? Unverified 04/17/22 16:43 PFSH All Active Problems?(Updated 04/17/22 @ 17:44 by YONY Crawford) Closed fracture of tibial plateau (Acute) Social History/Home Situation: Lives with his parents in multilevel home with 1 step upon entry. Reports independence with entering and exiting the house with axillary crutches. Currently sleeping in the living room as his bedroom is in his basement. Current Functional Limitations: Ambulation, stair negotiation, functional mobility with transfers, currently out of work on short-term disability. Bilateral axillary crutches Equipment Owned/DME: Subjective: Patient states that his knee is not too painful if he is just laying down but as soon as he tries to move his lower extremity does have intensified pain in the medial aspect of his right knee. Anxious to go home. Objective: General Observation: IV port and dorsal left hand. Severo wrap throughout knee thigh and calf with hinged knee brace in position locked at 0 degrees Mental Status: Alert and oriented x3 Pain: 2/10 at time of initial evaluation 11/07 with transfer sit to stand ROM: Right Upper Extremity: Within normal limits shoulder elbow wrist all planes. Left Upper Extremity: Within normal limits shoulder elbow wrist all planes Right Lower Extremity: Active assistive right hip abduction within functional limits, flexion to 90 degrees prior to limitation due to knee pain. Knee range of motion not tested secondary to precautions. He is position 0 degrees of knee extension. Ankle range of motion within functional limits. He is able to dorsiflex and plantarflex ankle as well as flex and extend digits 1 through 5 right foot. Left Lower Extremity: Within normal limits all planes hip knee and ankle. Strength: Right Upper Extremity: 5/5 throughout glenohumeral flexion, abduction, internal and external rotation, biceps and triceps. Good locator specialist Left Upper Extremity: 5/5 throughout glenohumeral joint flexion, abduction, internal and external rotation, biceps and triceps. Good locator specialist Right Lower Extremity: Patient able to perform quad set with palpable contraction of quadricep. Ankle plantarflexion dorsiflexion 5/5. Unable to perform straight leg raise. Does need assistance with hip flexion in supine. Left Lower Extremity: 5/5 throughout hip flexion, hip abduction, hip adduction, quads and hamstrings, ankle dorsiflexion plantarflexion Sensation: Patient reports intact sensation to light touch throughout the foot and ankle right lower extremity. Bed Mobility/Transfers: Supine to sit: Min assist x1 with assist for right lower extremity positioning. Patient does display tactics of handhold on brace to perform leg mobility when doing transfer. Sit to stand: Contact-guard x1. Patient utilizes axillary crutch in right hand when performing transfer sit to stand. Stand to sit: Contact-guard x1 with assistance of leg positioning Sit to supine: Min assist x1 with assist for right lower extremity positioning on bed. Gait: Patient ambulates 15 feet x 2 with bilateral axillary crutches and contact-guard x1. Essentially nonweightbearing despite precautions allowing for weightbearing controlled with immobilizer in place at 0 degrees extension. Balance: Static Sitting: Good Dynamic Sitting: Good Static Standing: Good Dynamic Standing: Good Special Tests: Mobility Limitations Standardized Measure [facility] AM-PAC 6 clicks Basic Mobility Inpatient Short Form: Raw Score: 21 CMS Score 29% Informed Consent/Education: Patient instructed in purpose of PT consult and plan of care. Also instructed in ankle pumps, glutes sets and quad sets. Assessment: Patient is a 27 year old male referred to physical therapy services with the diagnosis of status post arthroscopic PCL avulsion fracture repair, partial lateral meniscectomy and open midsubstance MCL repair. Patient presents with clinical signs and symptoms consistent with above diagnosis, as demonstrated by the following impairment level findings: Joint mobility, motor function, motor control and range of motion associated with soft tissue surgery. Impairments are contributing to the following functional limitations: AMPAC score. Patient is assessed as a X Low 08790 [] Moderate 18580 [] High 30726 complexity based on the following: History: See above Examination: See above Presentation: Stable Decision Making:AMPAC score Goals: No goals determined as patient was discharged to home following initial evaluation. Plan of Care/Treatment Plan: DISCHARGE RECOMMENDATIONS: Discharge to home. Patient is to follow-up with orthopedist and then initiate outpatient physical therapy in 2 to 3 weeks. He is to avoid seated knee flexion from 0 to 90 degrees until week 3 and is allowed protected weightbearing with crutches and knee in full extension 0 degrees 6 weeks. He is to always have hinged brace on and locked in extension 0 degrees for all ambulation. TREATMENT CODE/TIME: 43740: 30 minutes 12 45-1 15 Arjun Robison PT, DPT Disclaimer: This note was created using [employer] voice recognition software. It was reviewed for major content. However, there may be multiple small discrepancies and errors due to the voice recognition aspects of the software.
== END 2022-04-23 13:29 | disposition home or self-care (01) ==
LOC: SUR 21:29 → MS 21:30
PROVIDERS: Admitting Provider Student in an Organized Health Care Education/Training Program; Visit Provider Student in an Organized Health Care Education/Training Program
PROC: (CPT 29888; principal; 2022-04-22 10:45)
DX: S83.521A Sprain of posterior cruciate ligament of right knee, initial encounter; S83.281A Other tear of lateral meniscus, current injury, right knee, initial encounter; S83.411A Sprain of medial collateral ligament of right knee, initial encounter; I10 Essential (primary) hypertension; F41.9 Anxiety disorder, unspecified; F32.A Depression, unspecified; X58.XXXA Exposure to other specified factors, initial encounter
CPT/HCPCS: 27405; 29881; 29889; 73562; 76000; 96365; 97161; G0378; J0131; J0690; J1100; J1885; J2250; J2405; J3010; J3475

== ENCOUNTER 2022-05-04 10:02 | Outpatient (CLI) | payer OTHER, SELFPAY ==
--- NOTE | 2022-05-04 09:45 | DI.RAD_ITS ---
Exam(s) XR KNEE RT 2V AP,LAT EXAM: XR KNEE RT 2V AP,LAT CLINICAL HISTORY: surgery f/u. TECHNIQUE: 2D digital imaging was performed. COMPARISON: CR,XR XR KNEE RT 3V AP,LAT,OFELIA from 04/17/2022 MR MR LOWER JOINT RT WO from 04/21/2022 FINDINGS: Two views: There has been interval surgery to tack down the avulsed fragment of the posterior aspect the tibial plateau which houses the inferior insertional aspect of the PCL, seen on recent MRI scan. Appearance is satisfactory. Incidentally noted small independent osteophytic density measuring 3 x 3 millimeters in the intercondylar notch. This is seen just above the tibial plateau level. No other osseous findings. No prominent joint effusion. IMPRESSION: Satisfactory appearance. DATA REPOSITORY: RADIATION DOSE DELIVERED:
== END 2022-05-04 10:03 | disposition home or self-care (01) ==
LOC: DIORS 10:02
PROVIDERS: Visit Provider Student in an Organized Health Care Education/Training Program
DX: S82.141D Displaced bicondylar fracture of right tibia, subsequent encounter for closed fracture with routine healing (principal); S83.411D Sprain of medial collateral ligament of right knee, subsequent encounter; S83.521D Sprain of posterior cruciate ligament of right knee, subsequent encounter; X58.XXXD Exposure to other specified factors, subsequent encounter
CPT/HCPCS: 73560

== ENCOUNTER 2022-06-01 09:59 | Outpatient (CLI) | payer OTHER, SELFPAY ==
--- NOTE | 2022-06-01 09:45 | DI.RAD_ITS ---
Exam(s) XR KNEE RT 2V AP,LAT EXAM: XR KNEE RT 2V AP,LAT INDICATION: surgery f/u. COMPARISON: CR,XR XR KNEE RT 3V AP,LAT,OFELIA from 04/17/2022 CR XR KNEE RT 2V AP,LAT from 05/04/2022 TECHNIQUE: 2D digital imaging was performed. Two views. FINDINGS: Stable postsurgical findings at the tibial spines. Stable small tiny bony densities near projecting at the tibial spines. Joint spaces are maintained. No new abnormalities. DATA REPOSITORY: RADIATION DOSE DELIVERED:
== END 2022-06-01 10:00 | disposition home or self-care (01) ==
LOC: DIORS 09:59
PROVIDERS: Visit Provider Student in an Organized Health Care Education/Training Program
DX: S82.141D Displaced bicondylar fracture of right tibia, subsequent encounter for closed fracture with routine healing (principal); S83.411D Sprain of medial collateral ligament of right knee, subsequent encounter; S83.521D Sprain of posterior cruciate ligament of right knee, subsequent encounter; X58.XXXD Exposure to other specified factors, subsequent encounter
CPT/HCPCS: 73560

== ENCOUNTER 2022-07-13 10:41 | Outpatient (CLI) | payer OTHER, SELFPAY ==
--- NOTE | 2022-07-13 10:00 | DI.RAD_ITS ---
Exam(s) XR KNEE RT 2V AP,LAT EXAM: XR KNEE RT 2V AP,LAT CLINICAL HISTORY: right knee f/u. TECHNIQUE: 2D digital imaging was performed. Two images were obtained. AP and lateral views were ob tained. COMPARISON: CR XR KNEE RT 2V AP,LAT from 06/01/2022 FINDINGS: BONES: There are stable post operative changes present. No new fracture or dislocation. There again seen osseous fragments adjacent to the or arising from the tibial spines. The tibial plateau fractur e is unchanged in alignment. JOINTS: The joint spaces are well maintained. There is a small joint effusion. SOFT TISSUE: Normal. IMPRESSION: Stable postoperative changes. DATA REPOSITORY: RADIATION DOSE DELIVERED:
== END 2022-07-13 10:42 | disposition home or self-care (01) ==
LOC: DIORS 10:41
PROVIDERS: Visit Provider Student in an Organized Health Care Education/Training Program
DX: S83.521D Sprain of posterior cruciate ligament of right knee, subsequent encounter (principal); X58.XXXD Exposure to other specified factors, subsequent encounter; S82.141D Displaced bicondylar fracture of right tibia, subsequent encounter for closed fracture with routine healing; Z98.890 Other specified postprocedural states
CPT/HCPCS: 73560

== ENCOUNTER 2022-12-22 10:28 | Outpatient (CLI) | payer OTHER, SELFPAY ==
--- NOTE | 2022-12-22 09:45 | DI.RAD_ITS ---
Exam(s) XR KNEE RT 2V AP,LAT EXAM: XR KNEE RT 2V AP,LAT CLINICAL HISTORY: RIGHT KNEE F/U. TECHNIQUE: 2D digital imaging was performed. Three views. COMPARISON: CR,XR XR KNEE RT 3V AP,LAT,OFELIA from 04/17/2022 CR XR KNEE RT 2V AP,LAT from 07/13/2022 FINDINGS: BONES: Stable alignment of posterior tibial plateau fracture which shows increased healing compared w ith the previous exam. No acute fracture is present. No bony destructive lesion is seen. JOINTS: The knee is normally aligned. No joint effusion is seen. Joint spaces are maintained. SOFT TISSUE: Normal. IMPRESSION: Continued healing of tibial plateau fracture. No new abnormalities. DATA REPOSITORY: RADIATION DOSE DELIVERED:
== END 2022-12-22 10:29 | disposition home or self-care (01) ==
LOC: DIORS 10:28
PROVIDERS: Visit Provider Student in an Organized Health Care Education/Training Program
DX: S83.521D Sprain of posterior cruciate ligament of right knee, subsequent encounter (principal); X58.XXXD Exposure to other specified factors, subsequent encounter
CPT/HCPCS: 73560

== ENCOUNTER → 2023-01-12 01:16 | Outpatient (CLI) | payer OTHER, SELFPAY ==
--- NOTE | 2023-01-12 06:30 | DI.MRI_ITS ---
Exam(s) MR LOWER JOINT RT WO EXAM: MR LOWER JOINT RT WO CLINICAL HISTORY: evaluate integrity and elongation of the MCL,traumatic rupture,fx rt tibial TECHNIQUE: Multiplanar multisequence MRI of the knee was performed. COMPARISON: MR MR LOWER JOINT RT WO from 04/21/2022 CR XR KNEE RT 2V AP,LAT from 12/22/2022 FINDINGS: EFFUSION: There is small amount of increased joint fluid.. Tiny Duque cyst noted in the medial popli teal fossa. MARROW:There is abundant signal artifact at the level the tibial plateau related to the hardware subj acent to the treated PCL avulsion fracture repair site. Healed posterior medial tibial plateau fractu re evident. There is no evidence of an acute fracture. No osteochondral defects evident. There are no significant osseous lesions. PATELLOFEMORAL COMPARTMENT: The quadriceps tendon is intact. The patellar ligament is intact. There is no significant thinning of the retropatellar cartilage. No evidence of fissure nor signific ant chondral defect. No osteochondral defect at this level.There is no intraosseous signal to sugges t recent patellar dislocation. CRUCIATE LIGAMENTS: The anterior cruciate ligament is intact.The posterior cruciate ligament is intac t. MEDIAL COMPARTMENT/MEDIAL MENISCUS: Anterior horn of the medial meniscus appears unremarkable. There is signal abnormality in the region of the root of the posterior horn but this difficult to evaluate accurately because of the amount of susceptibility artifact. There is mild articular surface cartilageloss over the main weight-bearing surface. No osteochondral defects. No marginal osteophyte. MEDIAL COLLATERAL LIGAMENT: There is evidence of prior reconstruction surgery of the distal aspect of the medial collateral ligament. There is, however, a defect evident within the region of this distal reconstruction but not exhibiting abnormal high signal at this time and therefore may represent heavy forger helper jeb type retear. LATERAL COMPARTMENT/LATERAL MENISCUS: There is no evidence of lateral meniscal tear.There is minimal cartilage loss over the lateral femoral condyle. No subarticular edema. No osteophytes. ILIOTIBIAL BAND: Intact LATERAL COLLATERAL LIGAMENT COMPLEX: The fibular collateral ligament is intact. The biceps femoris t endon is intact.Popliteus muscle and tendon are intact. IMPRESSION: 1. There is evidence of prior surgery related to PCL tibial plateau avulsion and distal MCL repair. 2. There is a discontinuity in the distal MCL repair, not associated with abnormal high signal and pr obably representing a chronic retear. 3. There is suggestion of a tear of the posterior horn of the medial meniscus in the region of the ro ot but there is significant susceptibility artifact in this region making evaluation difficult. There are no obvious tears of the lateral meniscus. Mild degenerative changes noted in medial lateral comp artments. 4. Small amount of increased joint fluid and tiny Duque's cyst. DATA REPOSITORY:
--- NOTE | 2023-01-12 18:09 | DI.VRAD_ITS ---
PROCEDURE INFORMATION: Exam: MR Right Lower Extremity Joint Without Contrast, Knee Exam date and time: 01/12/2023 7:31 AM Age: 27 years old Clinical indication: Other: Evaluate integrity and elongation of mcl traumatic rupture TECHNIQUE: Imaging protocol: Magnetic resonance imaging of the right lower extremity joint without contrast. Exam focused on the knee. COMPARISON: MR LOWER JOINT RT WO 04/21/2022 9:07 AM FINDINGS: Bones/joints: A chronic, healed, impaction fracture is seen within the posterior margin of the medial tibial plateau. Postoperative changes of a PCL avulsion fracture repair with associated susceptibility artifact. No evidence for acute fracture. Tiny joint effusion. Tiny Duque's cyst. Tricompartmental cartilage loss, most pronounced within the medial compartment. Medial meniscus: Subtle irregularity is seen at the posterior root attachment of the medial meniscus which may represent a tear. Evaluation is limited due to the adjacent susceptibility artifact. A possible tear is also seen within the body of the medial meniscus with displacement of the body into the medial gutter. Lateral meniscus: No evidence for a lateral meniscal tear. Please note, the posterior root attachment is not well evaluated due to susceptibility artifact. Anterior cruciate ligament: The ACL is normal appearance. Posterior cruciate ligament: The PCL is intact. Medial capsule and supporting structures: Postoperative changes of the distal MCL reconstruction. An apparent defect is seen within the distal reconstruction, which may represent a chronic retear. This may represent a functional full-thickness retear. The medial collateral ligament is thickened at the femoral attachment along the joint line, concordant with sequela prior sprain and postsurgical granulation tissue. Lateral capsule and supporting structures: Thickening at the femoral attachment of the fibular collateral ligament, consistent with sequela prior sprain. Mild proximal popliteus and distal biceps femoris tendinosis without tear. Extensor mechanism of knee: Mild patellar tendinosis. The quadriceps tendon is normal appearance. Soft tissues: No focal fluid collection or hematoma. IMPRESSION: 1. Postoperative changes of a distal MCL repair, with a probable distal chronic retear. This may represent a functional full-thickness retear. 2. Postoperative changes of a PCL avulsion fracture repair without evidence for a recurrent injury. 3. Possible medial meniscal tear. 4. Tiny joint effusion. Tiny Duque's cyst. 5. Additional findings, described above. Dictated and Authenticated by: Inez Correa MD. Ordering:WATSON Eckert MD
== END ==
PROVIDERS: Visit Provider Student in an Organized Health Care Education/Training Program
DX: S82.141D Displaced bicondylar fracture of right tibia, subsequent encounter for closed fracture with routine healing (principal); S83.411D Sprain of medial collateral ligament of right knee, subsequent encounter; S83.521D Sprain of posterior cruciate ligament of right knee, subsequent encounter; X58.XXXD Exposure to other specified factors, subsequent encounter
CPT/HCPCS: 73721

== ENCOUNTER 2023-09-14 19:14 | Outpatient (REF) | payer BC, SELFPAY ==
[2023-09-14 20:26] LABS: Abs Immature Grans 0.02 10^3/uL (0.0-0.06); Absolute Basophil Count 0.05 10^3/uL (0.0-0.2); Absolute Monocyte Count 0.65 10^3/uL (0.1-0.8); Absolute Neutrophil Count 3.98 10^3/uL (1.2-6.7); Basophils % 0.7 %; Eosinophils % 2.9 %; HCT 45.2 % (40.0-50.0); HGB 16.1 g/dL (13.5-17.5); Immature Grans % 0.3 %; MCHC 35.6 % (32.0-36.0); MCV 81 fL (80-95); MPV 12.4 fL (8.0-11.0); Monocytes % 9.3 %; Neutrophils % 56.8 %; Platelet Count 179 10^3/uL (130-400); RBC 5.55 10^6/uL (4.36-5.78); RDW 12.6 % (11.8-14.1); RDW-SD 36.9 fL
[2023-09-14 20:58] LABS: ALT 89 U/L (16-63); AST 48 U/L (15-37); Albumin 4.5 g/dL (3.4-5.0); Alkaline Phosphatase 178 U/L (46-116); Anion Gap 9.4 mmol/L (3-11); BUN 15 mg/dL (7-18); Bilirubin, Total 0.46 mg/dL (0.2-1.0); CO2 28.6 mmol/L (21.0-32.0); CREATININE 1.3 mg/dL (0.70-1.30); Calculated LDL 84 mg/dL (<100); Chloride 104 mmol/L (98-107); Cholesterol 192 mg/dL (<200); Glucose 105 mg/dL (74-106); HDL Cholesterol 30 mg/dL (40-60); Potassium 3.8 mmol/L (3.5-5.1); Sodium 142 mmol/L (136-145); Triglyceride 392 mg/dL (<150)
== END 2023-09-14 19:15 | disposition home or self-care (01) ==
LOC: NCHCN 19:14
PROVIDERS: Visit Provider Student in an Organized Health Care Education/Training Program
DX: I10 Essential (primary) hypertension (principal); Z13.220 Encounter for screening for lipoid disorders
CPT/HCPCS: 80053; 80061; 83735; 84443; 85025

== ENCOUNTER 2024-02-13 01:10 | Outpatient (CLI) | payer MEDICAID, SELFPAY ==
--- NOTE | 2024-02-13 07:45 | DI.CT_ITS ---
Exam(s) CT TEMPORAL BONE W EXAM: CT TEMPORAL BONE W CLINICAL HISTORY: Persistent drainage right ear, ?cholesteatoma,conductive hearing loss rt. TECHNIQUE: Imaging Protocol: Axial computed tomography images with coronal and sagittal reformatted images were created and reviewed. CONTRAST MATERIAL: Intravenous: Omnipaque 350 Contrast volume:100 mL COMPARISON: No exams were available for comparison FINDINGS: Right Temporal Bone: The cochlea, vestibule, vestibular and cochlear aqueduct are normal. The facial nerve canal is well m aintained. The semicircular canals are unremarkable. There is no evidence of dehiscence. The internal auditory canal is within normal limits. There is a soft tissue mass medial to the retracted tympanic membrane and in contact with the inferior aspect of the middle ear ossicles. There does not appear to be erosion of the ossicles. There is no enhancement of the mass. There is no evidence of otoscle rosis. There is mild thickening of the wall of the external auditory canal. No erosive changes are seen in the adjacent bone. The carotid canal and jugular foramen are within normal limits. The temporomandib ular joint is unremarkable. Left Temporal Bone: The cochlea, vestibule, vestibular and cochlear aqueduct are normal. The facial nerve canal is well m aintained. The semicircular canals are unremarkable. There is no evidence of dehiscence. The interna l auditory canal is within normal limits. The scutum and tegmen are within normal limits. There is no evidence of otosclerosis. The external auditory canal and mastoid air cells are normal. The carotid canal and jugular foramen a re within normal limits. The temporomandibular joint is unremarkable. IMPRESSION: Soft tissue mass medial to the retracted tympanic membrane and in contact with the inferior aspect of the middle ear ossicles. No erosion of the ossicles is seen. The findings are suspicious for a cho lesteatoma. Cholesterol granuloma or glomus tympanicum may also be considered. RADIATION DOSE DELIVERED: 218.27mGy.cm Total DLP 218.27mGy.cm Total DLP 218.27mGy.cm Total DLP DATA REPOSITORY: All CT scans at this facility are submitted to the National Radiology Data Registry (NRDR) Dose Index Registry (DIR) with the [employer] ([employer]). RADIATION OPTIMIZATION: All CT scans at this facility use at least one of these dose optimization te chniques: automated exposure control; mA and/or kV adjustment per patient size (includes targeted exa ms where dose is matched to clinical indication); or iterative reconstruction.
[2024-02-13 11:28] LABS: CREATININE 1.3 mg/dL (0.70-1.30)
[2024-02-13] MEDS: Omnipaque 350 MG/ML 100 ML BTL IJ (11:51)
[2024-02-13] MEDS: Normal Saline - Diluent 50 ML VIAL IJ (11:52)
== END 2024-02-13 01:30 ==
PROVIDERS: PCP Student in an Organized Health Care Education/Training Program; Visit Provider Otolaryngology
DX: H92.11 Otorrhea, right ear (principal)
CPT/HCPCS: 70481; 82565; J3490

== ENCOUNTER 2024-10-03 16:15 | Outpatient (REF) | payer MEDICAID, SELFPAY | END 2024-10-03 16:16 | disposition home or self-care (01) | LOC: NCHCN 16:15 | PROVIDERS: PCP Student in an Organized Health Care Education/Training Program; Visit Provider Student in an Organized Health Care Education/Training Program | DX: F90.0 Attention-deficit hyperactivity disorder, predominantly inattentive type (principal) | CPT/HCPCS: 80360 ==

== ENCOUNTER 2024-10-31 14:08 | Outpatient (CLI) | payer MEDICAID, SELFPAY ==
--- NOTE | 2024-10-31 05:45 | DI.RAD_ITS ---
Exam(s) XR FOOT RT COMPLETE EXAM: XR FOOT RT COMPLETE CLINICAL HISTORY: Right foot pain M79.671. TECHNIQUE: 2D digital imaging was performed of the right foot. Three images were obtained. AP, oblique and lateral views were obtained. COMPARISON: No exams were available for comparison FINDINGS: BONES: No acute fracture is present. No bony destructive lesion is seen. There is a nonspecific small cyst in the head of the proximal phalanx of the great toe. JOINTS: No dislocation present. The articular surfaces are well maintained. SOFT TISSUE: Normal. IMPRESSION: No acute abnormality. DATA REPOSITORY: RADIATION DOSE DELIVERED:
--- NOTE | 2024-10-31 05:45 | DI.RAD_ITS ---
Exam(s) XR FOOT LT COMPLETE EXAM: XR FOOT LT COMPLETE CLINICAL HISTORY: Left foot pain M79.672. TECHNIQUE: 2D digital imaging was performed of the left foot. Three images were obtained. AP, oblique and lateral views were obtained. COMPARISON: No exams were available for comparison FINDINGS: BONES: No acute fracture is present. No bony destructive lesion is seen. There is a small enthesophyte at the posterior calcaneus. JOINTS: No dislocation present. The joint spaces are well maintained. SOFT TISSUE: Normal. IMPRESSION: Small calcaneal enthesophyte. No acute abnormality. DATA REPOSITORY: RADIATION DOSE DELIVERED:
== END 2024-10-31 14:28 ==
LOC: DI 14:09
PROVIDERS: PCP Student in an Organized Health Care Education/Training Program; Visit Provider Podiatrist
DX: M79.672 Pain in left foot (principal); M79.671 Pain in right foot
CPT/HCPCS: 73630